=== PATIENT | female | born 1945 | race Caucasian/White ===

== ENCOUNTER 2017-10-02 12:32 | Inpatient (IN) | payer MEDICARE, OTHER ==
[~2017-10-02] VITALS: Ht 162.6 cm; Wt 83.9 kg
[~2017-10-02 12:32] MED LIST: ADULT LOW DOSE81 MG PO; AMBIEN 5 MG TABL5 M1 PO; ARTHROTEC EC 71 EAC1 PO; ASPIRIN81 M2 PO; ATORVASTATIN CA40 MG PO; CIPRO250 M1 PO; DILTIAZEM HCL60 MG PO; EZETIMIBE; FENTANYL PA25 MCG/HR TRANSDERM; FLECAINIDE ACE150 MG PO; HYDROCODON-ACE1 EAC7 PO; HYDROCODONE-AP1 EAC6 PO; HYDROCODONE-APA1 TA1 PO; HYSINGLA ER20 MG PO; HYSINGLA ER30 MG PO; ISOSORBIDE MONO30 M1 PO; LEVOTHYROXIN0.088 MG PO; LIORESAL 10 MG10 MG PO; MEDROLDOSEPACK PO; NEXIUM40 MG; PEPCID AC20 M1 PO; PROZAC20 MG PO; PROZAC40 MG; SYNTHROID125 MCG; ZESTORETIC 10-1 EACH PO; ZETIA10 MG PO; ZOCOR80 MG; ZOFRAN 4 MG ORAL4 M1 DIS
[2017-10-02 12:34] VITALS: BP 155/112
[2017-10-02] MEDS ORDERED: XARELTO20 MG PO ×2 (12:47→12:48)
[2017-10-02] MEDS ORDERED: PROPAFENONE 15150 MG PO (12:48)
[2017-10-02] MEDS ORDERED: CYMBALTA60 MG PO (12:50)
[2017-10-02 12:52] LABS: ABSOLUTE BASOPHILS 0.1 thou/uL (0.0-0.2); ABSOLUTE EOSINOPHILS 0.4 thou/uL (0.0-0.7); ABSOLUTE LYMPHOCYTES 1.9 thou/uL (0.8-5.3); ABSOLUTE MONOCYTES 0.6 thou/uL (0.0-1.2); ABSOLUTE NEUTROPHILS 4.6 thou/uL (1.6-8.1); BASOPHILS 1.3 %; EOSINOPHILS 4.8 %; HEMATOCRIT 45.6 % (37.0-47.0); HEMOGLOBIN 15.3 gm/dL (12.0-15.0); LYMPHOCYTES 24.5 %; MCH 28.6 pg (26.0-34.0); MCHC 33.7 g/dL (28.0-37.0); MONOCYTES 8.5 %; MPV 9.2 fl. (7.2-11.1); NUCLEATED RBCS 0 /100WBC; PLATELET COUNT* 261 thou/uL (150-400); POLYS 60.9 %; RBC 5.36 mil/uL (4.20-5.00); RDW-CV 13.9 % (10.5-14.5); WBC 7.6 thou/uL (4.0-11.0)
[2017-10-02 13:00] LABS: ANION GAP 10 mmol/L (7-16); BUN 14 mg/dL (7-18); CALCIUM 9.3 mg/dL (8.5-10.1); CHLORIDE 99 mmol/L (98-107); CO2 26 mmol/L (21-32); CREATININE 0.9 mg/dL (0.6-1.3); GLUCOSE 217 mg/dL (70-99); POTASSIUM 3.4 mmol/L (3.5-5.1); SODIUM 135 mmol/L (136-145)
[2017-10-02 13:06] LABS: ALBUMIN 3.1 g/dL (3.4-5.0); ALKALINE PHOSPHATASE 102 U/L (46-116); SGOT 22 U/L (15-37); SGPT 23 U/L (30-65); TOTAL BILIRUBIN 0.5 mg/dL (<0.1-1.0); TOTAL PROTEIN 7.6 g/dL (6.4-8.2); TROPONIN-I LEVEL <0.06 ng/mL (<0.06)
[2017-10-02 13:17] LABS: APTT 25.2 Seconds (25.0-31.3); INR 1.1; PROTIME 10.5 Seconds (9.20-11.50)
[2017-10-02 14:21] VITALS: BP 110/71
[2017-10-02] MEDS ORDERED: PROTONIX40 M1 PO (15:10)
[2017-10-02] MEDS ORDERED: HYDROCODON-ACE1 EAC8 PO (15:16)
[2017-10-02] MEDS ORDERED: LISINOPRIL-HCT1 EACH PO (15:18)
[2017-10-02] MEDS ORDERED: MINOCIN50 MG PO (15:19)
[2017-10-02] MEDS ORDERED: ZANTAC 150MG T150 MG PO (15:20)
[2017-10-02] MEDS ORDERED: HYSINGLA ER30 MG PO (15:22)
--- NOTE | 2017-10-02 18:56 | NUR ---
PT BACK INTO A FIB GOES JORDY BERNAL PUT IN NEW ORDERS TO HELP
[2017-10-02 20:20] VITALS: BP 103/73
[2017-10-03] VITALS (7 sets, daily range): BP systolic 101–113; BP diastolic 59–71
--- NOTE | 2017-10-03 05:00 | NUR ---
A&O X4 CALM COOPERITVE. PT REPORTED UNABLE TO SLEEP GIVEN SECOND DOSE OF AMBIEN. PT SR ON THE MONITOR. PT BECAME TACKY WHEN WALKING TO THE BATHROOM. PT ON RA. PT ON O2 SAT STUDY FOR NIGHT. PT ADLIB. VITALS WNL. HOURLY ROUNDING FOR SAFETY.
--- NOTE | 2017-10-03 08:40 | NUR ---
ASSUMED PT CARE AT 0730, FULL ASSESMENT DONE CHARTED. PT A/O X4, DENIES CHEST PAIN, PT STATES SHE TAKES HYDROCODONE DAILY PRESCRIBED BY HER PAINMANAGEMENT . PT UP TO CHAIR FOR BREAKFAST. BECAME SOA AND HR ELEVATED AT THIS TIME. O2 SAT 98%, PT ON RA. PT MAY DISCHARGE TODAY, WAITING ON CARDIOLOGY SIGN OFF. FALL PRECATUIONS IN PLACE. CALL LIGHT IN REACH. WILL CONTINUE WITH PLAN OF CARE.
--- NOTE | 2017-10-03 08:42 | TST ---
[place] [address] TREADMILL STRESS TEST Name: DOROTHY SAVAGE Room: [address] IN .R.#: [id number] Admission: 10/02/17 Attend Phys: Jesse Gracia Discharge: Date of : 49 Date of Service: 10/02/17 1754 Report #: [id number] THIS REPORT FOR: //name// CC: Clive Garcia PROCEDURE: Standard Merlin protocol exercise stress test. INDICATION: Chest pain and dyspnea. CARDIAC HISTORY: Paroxysmal atrial fibrillation. CARDIAC MEDICATIONS: Isosorbide, Zestoretic, Xarelto, propafenone, and Crestor. The patient exercised per standard Merlin protocol for a total of 4 minutes and 8 seconds. The resting heart rate was 111 beats per minute with the resting blood pressure of 110/78 mmHg. At peak stress, the patient's heart rate was 164 beats per minute with the peak stress blood pressure of 191/98 mmHg. The recovery heart rate was 99 beats per minute with a recovery blood pressure of 146/83 mmHg. Exercise was stopped due to dyspnea and fatigue. The patient had no chest discomfort with the standard Merlin protocol exercise. The patient achieved 109% of the age predicted maximum heart rate and an energy expenditure of 5.97 METS. The baseline 12-lead electrocardiogram shows sinus tachycardia with nonspecific ST segment depression noted in the anterolateral leads. EKGs obtained during and post-exercise showed sinus tachycardia without significant ST segment changes when compared to baseline. There were no stress induced arrhythmias. IMPRESSIONS: 1. Limited exercise tolerance. 2. No clinical evidence to suggest stress-induced ischemia. 3. No EKG changes to suggest stress-induced ischemia. <ELECTRONICALLY SIGNED> By: Ori Duong MD, FACC 10/03/17 0842 1754 0319 Ori Duong MD, FACC /nt
--- NOTE | 2017-10-03 08:42 | CON ---
[address] [address] CONSULTATION Name: DOROTHY SAVAGE Emmanuel Room: [address] IN [facility]#: [id number] Admission: 10/02/17 Attend Phys: John Torres Discharge: Date of : 49 Report #: [id number] THIS REPORT FOR: //name// CC: Clive Garcia DATE OF SERVICE: 10/02/2017 INDICATION: Dyspnea on exertion, chest pain. HISTORY OF PRESENT ILLNESS: The patient is a 72-year-old white female with a history of paroxysmal atrial fibrillation. She was recently placed on propafenone and Xarelto as she was discovered on a 30-day event monitor to be having an episode of atrial fibrillation. She states the propafenone has made her nauseous. She is still taking the medication. She states that over the last year, she has had progressive dyspnea on exertion and weakness and fatigue to the point where now she lays on the couch or on her bed and essentially does nothing else. She gets up to walk from the couch to the kitchen, she becomes exceptionally dyspneic and notes her heart pounding and has chest pressure that resolves with rest. She does not have the symptoms while at rest. She is without other cardiac complaints at this time. EKG in the Emergency Room shows sinus rhythm. Troponin is less than 0.6. PAST MEDICAL HISTORY: Paroxysmal atrial fibrillation, hyperlipidemia, anxiety disorder and colon resection 5 years ago. She had a cardiac catheterization in 2009 that showed nonocclusive coronary artery disease. Normal LV systolic function. Gastroesophageal reflux. HOME MEDICATIONS: Cymbalta all 60 mg p.o. daily, Nexium 40 mg p.o. daily, hydrocodone/acetaminophen 5/325 q.8h. p.r.n., Imdur 30 mg daily, levothyroxine 0.088 mg daily, Zestoretic 10/12.5 daily, propafenone 150 mg t.i.d., Xarelto 20 mg daily, Ambien 5 mg at bedtime. ALLERGIES: None documented. FAMILY HISTORY: Noncontributory. SOCIAL HISTORY: The patient is a nonsmoker. PHYSICAL EXAMINATION: VITAL SIGNS: Stable. Blood pressure 110/71, pulse 89 and regular. GENERAL: This is a pleasant female in no distress. Mood and affect appropriate. HEENT: The patient is wearing glasses. Extraocular muscles intact. Mucous membranes are moist. NECK: Shows no jugular venous distention. [place] [address] CONSULTATION Name: DOROTHY SAVAGE Room: [address]#: [id number] Admission: 10/02/17 Attend Phys: John Torres Discharge: Date of : 49 Report #: [id number] CHEST: Reveals clear lung nielson without wheezes, rales or rhonchi. CARDIOVASCULAR: Reveals a regular rhythm with normal S1 and S2. I do not appreciate gallop or murmur. ABDOMEN: Reveals normal bowel sounds. The abdomen is soft and nontender. EXTREMITIES: Shows no edema. Peripheral pulses are 2+ and easily palpable. SKIN: Warm and dry. LABORATORY DATA: A 12-lead EKG shows sinus rhythm with no significant ST or T-wave abnormality. Labs are reviewed. Electrolytes are fairly unremarkable. The initial troponin is less than 0.06. NT-proBNP is 17. CBC is within normal limits. Chest x-ray shows no acute infiltrates or edema. IMPRESSION AND RECOMMENDATIONS: 1. Profound dyspnea on exertion. Etiology is not entirely clear. This could represent an anginal equivalent. Stress testing will be ordered. Further evaluation will be pending the results of that study. I am also obtaining echocardiogram to evaluate underlying cardiac structure and function. 2. Paroxysmal atrial fibrillation. The patient is having some intolerance to propafenone. She has had significant bradycardia in the past with rate controlling medications. I would recommend switching to flecainide and consider evaluation for ablation therapy. 3. Reported history of hyperlipidemia. Fasting lipid profile pending. <ELECTRONICALLY SIGNED> By: Ori Duong MD, FACC 10/03/17 0842 1500 [id number] Duong MD, FACC /nt
[2017-10-03] MEDS ORDERED: FLECAINIDE ACET50 M1 PO (13:33)
[2017-10-03] MEDS ORDERED: SYMBICORT160 MCG/4. INH (13:34)
--- NOTE | 2017-10-03 14:44 | 2DMMODE ---
[place] [address] 2 D/M-MODE ECHOCARDIOGRAM Name: DOROTHY SAVAGE Room: [address] IN [facility]#: [id number] Admission: 10/02/17 Attend Phys: Jesse Garcia Discharge: Date of : 49 Date of Service: 10/03/17 1443 Report #: [id number] THIS REPORT FOR: //name// APPROVED REPORT Study performed: 10/03/2017 10:30:01 EXAM: Comprehensive 2D, Doppler, and color-flow Echocardiogram Patient Location: In-Patient Room #: 210 Status: routine BSA: 1.89 HR: 74 bpm BP: 106/65 mmHg Rhythm: NSR Other Information Study Quality: Good Indications Chest Pain 2D Dimensions LVEF(%): 86.83 (>50%) IVSd: 11.95 (7-11mm) LVOT Diam: 19.37 (18-24mm) LVDd: 40.34 mm PWd: 9.60 (7-11mm) Ascending Ao: 32.35 (22-36mm) LVDs: 17.77 (25-40mm) Aortic Root: 25.68 mm Berrios's LVEF: 86.83 % Volumes Left Atrial Volume (Systole) LA ESV Index: 17.80 mL/m2 Aortic Valve AoV Peak Jamil.: 1.50 m/s AO Peak Gr.: 8.97 mmHg LVOT Max P.39 mmHg AO Mean Gr.: 4.95 mmHg LVOT Mean P.46 mmHg LVOT Max V: 1.45 m/s AO V2 VTI: 23.56 cm LVOT Mean V: 0.83 m/s YANDEL (VTI): 3.04 cm2 LVOT V1 VTI: 24.28 cm Mitral Valve E/A Ratio: 0.80 [place] [address] 2 D/M-MODE ECHOCARDIOGRAM Name: JESSICADOROTHY HERNANDEZ Room: [address] IN .R.#: [id number] Admission: 10/02/17 Attend Phys: Jesse Garcia Discharge: Date of : 49 Date of Service: 10/03/17 1443 Report #: [id number] MV Decel. Time: 277.64 ms MV E Max Jamil.: 0.70 m/s MV PHT: 80.52 ms MVA (PHT): 2.73 cm2 TDI E/Lateral E': 5.83 E/Medial E': 7.78 Medial E' Jamil.: 0.09 m/s Lateral E' Jamil.: 0.12 m/s Pulmonary Valve PV Peak Jamil.: 1.16 m/s PV Peak Gr.: 5.36 mmHg Left Ventricle The left ventricle is normal size. There is normal LV segmental wall motion. There is normal left ventricular wall thickness. Left ventricular systolic function is normal. The left ventricular ejection fraction is within the normal range. LVEF is 60-65%. Grade I - abnormal relaxation pattern. Right Ventricle The right ventricle is normal size. The right ventricular systolic function is normal. Atria The left atrium size is normal. The right atrium size is normal. Aortic Valve Mild aortic valve sclerosis. No aortic regurgitation is present. There is no aortic valvular stenosis. Mitral Valve The mitral valve is normal in structure. Trace mitral regurgitation. No evidence of mitral valve stenosis. Tricuspid Valve The tricuspid valve is normal in structure. Unable to assess PA pressure. Trace tricuspid regurgitation. Pulmonic Valve The pulmonary valve is normal in structure. There is no pulmonic valvular regurgitation. Great Vessels The aortic root is normal in size. IVC [place] [address] 2 D/M-MODE ECHOCARDIOGRAM Name: DOROTHY SAVAGE Room: [address] IN ..#: [id number] Admission: 10/02/17 Attend Phys: Jesse Garcia Discharge: Date of : 49 Date of Service: 10/03/17 1443 Report #: [id number] collapses with >50% inspiration Pericardium There is no pericardial effusion. <Conclusion> The left ventricle is normal size. There is normal left ventricular wall thickness. Left ventricular systolic function is normal. The left ventricular ejection fraction is within the normal range. LVEF is 60-65%. Grade I - abnormal relaxation pattern. The right ventricle is normal size. The left atrium size is normal. Mild aortic valve sclerosis. No aortic regurgitation is present. There is no aortic valvular stenosis. The mitral valve is normal in structure. Trace mitral regurgitation. The tricuspid valve is normal in structure. IVC is normal in size and collapses with >50% inspiration There is no pericardial effusion. There is normal LV segmental wall motion. <ELECTRONICALLY SIGNED> By: Tyshawn Olson MD, FACC 10/03/17 1443 1443 1443 Tyshawn Olson MD, FACC /INF
--- NOTE | 2017-10-03 15:44 | EKG ---
[place] [address] ELECTROCARDIOGRAM REPORT Name: JESSICADAVIDLORIDOROTHY L Room: [address] IN 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 Officer: : 1945 Requested By: Beltran Mcpherson Order Number: [id number] MD: Tyshawn Olson Measurements Intervals [place] Rate: 86 P: 78 MA: 182 QRS: 20 QRSD: 125 T: 22 QT: 386 QTc: 462 Interpretive Statements Sinus rhythm Nonspecific intraventricular conduction delay Borderline ST depression, anterolateral leads Baseline wander in lead(s) V6 Compared to ECG 07/07/2012 16:01:44 Intraventricular conduction delay now present Possible ischemia no longer present ST (T wave) deviation still present Electronically Signed On 10-03-2017 15:44:12 MATERIALS HANDLING EQUIPMENT OPERATOR by Tyshawn Olson [email or web address] <ELECTRONICALLY SIGNED> By: Tyshawn Olson MD, FACC 10/03/17 1544 1239 1239 Tyshawn Olson MD, FAC /EPI
--- NOTE | 2017-10-03 15:46 | EKG ---
[place] [address] ELECTROCARDIOGRAM REPORT Name: JESSICADAVIDLORIDOROTHY L Room: [address] IN [facility]#: [id number] Admission: 10/02/17 Attend Phys: John Torres Discharge: Date of : 49 Report #: [id number] THIS REPORT FOR: //name// [facility] Test Date: 2017-10-02 Test Time: 18:27:55 Pat Name: DOROTHY SAVAGE Department: Room: [facility] Gender: F Bindery Worker: : 1945 Requested By: Beltran Mcpherson Order Number: [id number] Reading MD: Tyshawn Olson Measurements Intervals [place] Rate: 119 P: LA: QRS: 12 QRSD: 86 T: QT: 347 QTc: 489 Interpretive Statements Atrial fibrillation with rapid response Borderline repolarization abnormality Borderline prolonged QT interval Compared to ECG 07/07/2012 16:01:44 Sinus rhythm no longer present ST (T wave) deviation no longer present Electronically Signed On 10-03-2017 15:46:17 FITNESS PLAN COORDINATOR by Tyshawn Olson [email or web address] <ELECTRONICALLY SIGNED> By: Tyshawn Olson MD, [facility] 10/03/17 1546 1827 182 Tyshawn Olson MD, [facility] /EPI
--- NOTE | 2017-10-03 15:47 | EKG ---
[place] [address] ELECTROCARDIOGRAM REPORT Name: LEONILAEMILEEDOROTHY L Room: [address] IN [facility]#: [id number] Admission: 10/02/17 Attend Phys: John Torres Discharge: Date of : 49 Report #: [id number] THIS REPORT FOR: //name// [facility] Test Date: 2017-10-03 Test Time: 00:39:30 Pat Name: DOROTHY SAVAGE Department: Room: [facility] Gender: F Electrical Repairer: : 1945 Requested By: Beltran Mcpherson Order Number: [id number] Jose Daniel MD: Tyshawn Olson Measurements Intervals [place] Rate: 81 P: 47 OR: 204 QRS: 19 QRSD: 117 T: 12 QT: 430 QTc: 500 Interpretive Statements Sinus rhythm Nonspecific intraventricular conduction delay Low voltage, precordial leads Compared to ECG 07/07/2012 16:01:44 Intraventricular conduction delay now present Low QRS voltage now present ST (T wave) deviation no longer present Possible ischemia no longer present Electronically Signed On 10-03-2017 15:47:14 INSTRUCTOR MODELING by Tyshawn Olsno [email or web address] <ELECTRONICALLY SIGNED> By: Tyshawn Olson MD, [facility] 10/03/17 1547 0039 0039 Tyshawn Olson MD, [facility] /EPI
[2017-10-03] MEDS ORDERED: XARELTO20 MG PO (17:03)
--- NOTE | 2017-10-03 17:51 | NUR ---
RECIEVED DISCHARGE ORDERS FROM DR LOPEZ, REVIEWED MEDS WITH HIM, NEW MEDS CALLED TO PHARMACY. REVIEWED THESE ORDERS WITH PT AND . THEY BOTH VERBALIZED UNDERSTANDING. PTS IV REMOVED, BELONGINGS GATHERED. PT LEFT UNIT AT APPROX 1745
--- NOTE | 2017-10-04 12:31 | NUR ---
PATIENTS NOTIFIED THIS RN ABOUT THEIR INSURANCE NOT COVERING THE NEW SCRIPT FOR SYMBICORT. STATED HE NEEDED A REPLACEMENT MEDICATION. NEW SCRIPT FOR ADVAIR HFA INHALER CALLED INTO PATIENTS PHARMACY.
[2017-11-19] MEDS ORDERED: HYSINGLA ER30 MG PO ×2 (09:30→09:32)
[2017-11-19] MEDS ORDERED: HYDROCODONE-AP1 EAC6 PO (09:30)
[2017-11-19] MEDS ORDERED: AMBIEN 5 MG TABL5 M1 PO (09:37)
[2017-11-19] MEDS ORDERED: ZESTORETIC 10-1 EACH PO (09:37)
[2017-11-19] MEDS ORDERED: CRESTOR20 MG PO (09:44)
[2017-11-19] MEDS ORDERED: XARELTO20 MG PO (09:44)
[2017-11-19] MEDS ORDERED: ZANTAC 150MG T150 MG PO (09:44)
[2018-03-18] MEDS ORDERED: HYDROCODONE-AP1 EAC6 PO ×2 (08:39→09:53)
[2018-03-18] MEDS ORDERED: HYSINGLA ER30 MG PO ×2 (08:39→09:53)
[2018-03-18] MEDS ORDERED: HYSINGLA ER40 MG PO (10:04)
== END 2017-10-03 17:45 | disposition home or self-care (01) | DRG 202 ==
LOC: M.ERS 12:32 → M.2W 13:17 → M.TBA-ER 13:17 → M.2W 14:42 → M.TBA-ER 10-03 08:25 → M.2W 10-03 17:45
PROVIDERS: Family Medicine; ADMIT Internal Medicine
DX: J20.9 Acute bronchitis, unspecified (principal); J44.0 Chronic obstructive pulmonary disease with (acute) lower respiratory infection; J96.10 Chronic respiratory failure, unspecified whether with hypoxia or hypercapnia; I48.0 Paroxysmal atrial fibrillation; E78.5 Hyperlipidemia, unspecified; F41.9 Anxiety disorder, unspecified; I25.10 Atherosclerotic heart disease of native coronary artery without angina pectoris; K21.9 Gastro-esophageal reflux disease without esophagitis; J11.1 Influenza due to unidentified influenza virus with other respiratory manifestations; I10 Essential (primary) hypertension; Z90.49 Acquired absence of other specified parts of digestive tract

== ENCOUNTER → 2017-11-19 | Outpatient (CLI) | payer MEDICARE, OTHER ==
[~2017-11-19] MED LIST changes: +CRESTOR20 MG PO; +CYMBALTA60 MG PO; +FLECAINIDE ACET50 M1 PO; +HYDROCODON-ACE1 EAC8 PO; +HYSINGLA ER40 MG PO; +LISINOPRIL-HCT1 EACH PO; +MINOCIN50 MG PO; +NEXIUM40 MG PO; +PROPAFENONE 15150 MG PO; +PROTONIX40 M1 PO; +PROTONIX40 M3 PO; +SYMBICORT160 MCG/4. INH; +SYNTHROID88 MCG PO; +XARELTO20 MG PO; +ZANTAC 150MG T150 MG PO
--- NOTE | 2017-12-04 14:40 | PAINCON ---
[address] [address] PAIN MANAGEMENT CONSULTATION Name: DOROTHY SAVAGE [id number] Admission: 11/19/17 Attend Phys: Dion Long MD Discharge: Date of : 49 Report #: [id number] THIS REPORT FOR: //name// CC: Dion Jerry MD DATE OF SERVICE: 11/19/2017 FOLLOWUP COMPLAINT: Here for medication because of mid and low back pain. FOLLOWUP HISTORY: The patient is a 72-year-old female who has been seen and followed in the pain clinic for chronic back pain. She has been seen by Dr. Destin Cooper. This is my first visit with her. She states that she is having pain and discomfort in the mid portion of her back that it is a 4/10 today. She has had this problem which has been chronic for a number of years. Notes that Ben Bolt is helpful. Some days, she finds that she needs to take 2 tablets. She does this when she is having increased pain. Overall, she feels that things are going reasonably well. Her medications are working satisfactorily. She is not having any problems with them. No bowel or bladder dysfunction. No problems with mentating. Overall, this enable her to engage in activities of daily living, she would not be able to do without them. There is no disorientation. She states that she keeps her medications in a confined area. She is aware of the possible complications of these medications. She finds that Hysingla 30 mg a day as well as with the frequent use of hydrocodone 5 mg tablets can be quite efficacious. She does not feel that she is having any withdrawal signs. She is not having any feeling of addiction nor problems with decreasing efficacy. ALLERGIES: No known drug allergies. CURRENT MEDICATIONS: Cymbalta 60 mg p.o. daily, hydrocodone 5/325 one p.o. t.i.d. as needed, Hysingla ER (hydrocodone 30 mg 1 p.o. daily), Synthroid 0.088 mg, lisinopril/hydrochlorothiazide 10/12.5, Zantac 150 mg a total of 300 mg daily, Xarelto 20 mg daily, Crestor 20 mg daily, Ambien 5 mg daily. PAST MEDICAL HISTORY: Degenerative joint disease, osteoarthritis, gastroesophageal reflux, dyslipidemia, depression, hypothyroidism. PAST SURGICAL HISTORY: Colon resection in 2004. SOCIAL HISTORY: Denies use of tobacco, alcohol or IV drug use. 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 She is accompanied by her . REVIEW OF SYSTEMS: Positive for recurrent low back pain, neck pain, and difficulty ambulating [place] [address] PAIN MANAGEMENT CONSULTATION Name: DOROTHY SAVAGE Room: [facility] JAMILA Jenny#: [id number] Admission: 11/19/17 Attend Phys: Dion Long MD Discharge: Date of : 49 Report #: [id number] Pain clinic assessment score, the patient states that she is not being treated out right for osteoarthritis or rheumatoid arthritis. Height 5 feet 5 inches, weight 194 pounds, BMI is 32.2. VITAL SIGNS: Blood pressure 111/81, heart rate 74, respiratory rate 16, room air saturation 96%, temperature 98.1. Pain intensity score 4/10, mild. Pain improves when she lies down and sometimes placement of a pillow under her legs. IMPRESSION: 1. Risk for falling. The patient has not fallen in the last 3 months. 2. Blood thinner. The patient has been given Xarelto for atrial fibrillation, recently hospitalized in the last few weeks because of this. 3. Opioid therapy greater than 6 weeks. The patient is on a contract with the pain clinic regarding use of Hysingla and fentanyl. RISK ASSESSMENT TOOL: 1. Functional assessment tool. 2. Recreational drug use: Denies recreational drug use. 2. Tobacco: Smoked 30 years ago, has stopped. 3. Alcohol: The patient rarely uses alcoholic beverages. PHYSICAL EXMINATION: GENERAL: The patient is a well-developed, well-nourished white female. Appears her stated age. She is accompanied by her . ORIENTATION: The patient is alert and oriented x 3. Affect is appropriate. HEENT: Normocephalic, atraumatic. Extraocular eye muscles intact. Hearing is within normal limits. Buccal membranes are moist. NECK: Without adenopathy or JVD. LUNGS: Clear to auscultation. HEART: Regular rate. ABDOMEN: Nontender. MUSCULOSKELETAL: Normal alignment without significant scoliosis, kyphosis or lordosis. EXTREMITIES: No clubbing, cyanosis or edema. She has some tenderness to palpation in the mid back in the low back area, paraspinous area musculature. Spurling's test is negative. Muscle bulk and tone equal and symmetrical in the upper extremities, intact to light touch from C5 through dermatomal T1. Deep tendon reflexes equal, symmetrical, brachioradialis and triceps. IMPRESSION: 1. Lumbosacral spondylosis without radiculopathy. 2. Myofascial pain. 3. Opioid dependency. 4. Chronic intractable pain. [address] [place] [address] PAIN MANAGEMENT CONSULTATION Name: DOROTHY SAVAGE Room: [facility]#: [id number] Admission: 11/19/17 Attend Phys: Dion Long MD Discharge: Date of : 49 Report #: [id number] RECOMMENDATIONS: We discussed treatment options with the patient and her . We will continue with her current medications. She has newly diagnosed episode of atrial fibrillation. She is now currently been placed on Xarelto. She will call us if she has any problems with her medications. She will continue with the Hysingla 30 mg daily and hydrocodone 5 mg p.r.n. as needed. Hopefully, she will be able to continue with her activities of daily living with a reasonable amount of comfort. She will call us if she has any problems with the medication. A script for Hysingla 30 mg 1 tab p.o. every day. Total of 90 has been written in a 3-month prescription. Also, a prescription for hydrocodone 5/325 one every 8 hours p.r.n. for pain, has been written for with 2 total of 270 for a 3-month prescription. The patient will follow up in the next 3 months as needed. We would like to thank you for letting us participate in her care. We hope she continues to improve. Report amended for demographic error. <ELECTRONICALLY SIGNED> By: Dion Long MD 12/04/17 1440 1042 1323N. MD MERNA Mckenzie
== END ==
LOC: M.PC 11-18 09:00
DX: M47.27 Other spondylosis with radiculopathy, lumbosacral region (principal); G89.4 Chronic pain syndrome; F11.20 Opioid dependence, uncomplicated

== ENCOUNTER 2018-01-16 17:36 | Inpatient (IN) | payer MEDICARE, OTHER ==
[~2018-01-16] VITALS: Ht 152.4 cm; Wt 86.6 kg
[~2018-01-16 17:36] MED LIST changes: -HYSINGLA ER40 MG PO; -NEXIUM40 MG PO; -PROTONIX40 M3 PO; -SYNTHROID88 MCG PO
[2018-01-16 17:42] VITALS: BP 129/83
[2018-01-16] MEDS ORDERED: NEXIUM40 MG PO (17:51)
[2018-01-16] MEDS ORDERED: FLECAINIDE ACET50 M1 PO (17:51)
[2018-01-16] MEDS ORDERED: HYSINGLA ER30 MG PO (17:51)
[2018-01-16 18:13] LABS: ABSOLUTE BASOPHILS 0.1 thou/uL (0.0-0.2); ABSOLUTE EOSINOPHILS 0.3 thou/uL (0.0-0.7); ABSOLUTE LYMPHOCYTES 2.5 thou/uL (0.8-5.3); ABSOLUTE MONOCYTES 0.5 thou/uL (0.0-1.2); ABSOLUTE NEUTROPHILS 4.3 thou/uL (1.6-8.1); BASOPHILS 1.1 %; EOSINOPHILS 3.4 %; HEMATOCRIT 43.3 % (37.0-47.0); HEMOGLOBIN 14.5 gm/dL (12.0-15.0); LYMPHOCYTES 32.9 %; MCH 28.8 pg (26.0-34.0); MCHC 33.5 g/dL (28.0-37.0); MONOCYTES 7.1 %; MPV 9.4 fl. (7.2-11.1); NUCLEATED RBCS 0 /100WBC; PLATELET COUNT* 253 thou/uL (150-400); POLYS 55.5 %; RBC 5.04 mil/uL (4.20-5.00); RDW-CV 14.5 % (10.5-14.5); WBC 7.7 thou/uL (4.0-11.0)
[2018-01-16 18:18] LABS: ANION GAP 9 mmol/L (7-16); BUN 18 mg/dL (7-18); CALCIUM 9.1 mg/dL (8.5-10.1); CHLORIDE 103 mmol/L (98-107); CO2 29 mmol/L (21-32); CREATININE 0.9 mg/dL (0.6-1.3); GLUCOSE 164 mg/dL (70-99); POTASSIUM 3.6 mmol/L (3.5-5.1); SODIUM 141 mmol/L (136-145)
[2018-01-16 18:28] LABS: ALBUMIN 3.1 g/dL (3.4-5.0); ALKALINE PHOSPHATASE 90 U/L (46-116); LIPASE 91 U/L (73-393); NT-PRO BRAIN NAT PEPTIDE 68 pg/mL (<300); SGOT 17 U/L (15-37); SGPT 19 U/L (30-65); TOTAL BILIRUBIN 0.3 mg/dL (<0.1-1.0); TOTAL PROTEIN 7.2 g/dL (6.4-8.2); TROPONIN-I LEVEL <0.06 ng/mL (<0.06)
[2018-01-16 19:36] VITALS: BP 119/69
[2018-01-16 20:00] VITALS: BP 124/82
--- NOTE | 2018-01-16 23:04 | NUR ---
PT WAS ADMITTED THIS EVENING FROM ER . GOT ON THE TELE FLOOR IN ROOM 211 AT 1945 ACCOMPANIED BY NURSE GLENIS. SHE IS AMBULATORY , STEADY, AND PLEASANT , ALERT AWAKE ORIENTED X 4, COOPERATIVE. O2 SATURATION IS 100%ON RA. VITAL SIGNS WITHIN NORMAL LIMIT. SKIN IS INTACT. SINUS RYTHM ON THE MONITOR. CARDIAC SCRIPT WAS PRINTED AND PLACED IN THE ADMISSION HISTORY AND ASSESSMENT PERFOREMD AT BEDSIDE. REFER TO CHART. PT ONLY CONCERN IS TO GO HOME IN THE MORNING. CARDIOLOGY CONSULTED ORDERED. DR WILLIS SAYS HE WILL SEE PT IN THE MORNING. PT IS PLACED NPO AFTER MIDNIGHT PER PROTOCOL. WATER AND SNCAK PROVIDED. I WENT OVER MEDICATION LIST WITH PT, DR ENCISO WAS CALLED AND ENTERED MEDS ON THE COMPUTER . PM MEDICATIONS WERE ADMINITERED SCHEDULED. PT MADE COMFORTABLE, CALL LIGHT AT REACH, EDUATION PROVIDED NEEDED. ORDERS WERE PUT ON THE COMPUTER. PT STATES SHE LIVES HOME WITH WHO VISITED FOR 1 HOUR. PT IS CURRENTLY READING IN HER ROOM. WILL CONTINUE TO MONITOR.
[2018-01-17] VITALS (7 sets, daily range): BP systolic 91–120; BP diastolic 52–72
--- NOTE | 2018-01-17 10:31 | NUR ---
Pt is A&O. Resides at home with her . Independent with ADLS, continues to cook, clean and drive. No DME. No hx of HH or SNF. Hx of outpt therapy. Supportive family that is invovled in POC. Goal is to return home once medically stable. No needs anticipated.
--- NOTE | 2018-01-17 10:57 | EKG ---
[place] [address] ELECTROCARDIOGRAM REPORT Name: DOROTHY SAVAGE Room: [address] IN [facility]#: [id number] Admission: 01/16/18 Attend Phys: John Torres Discharge: Date of : 49 Report #: [id number] THIS REPORT FOR: //name// 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: : 1945 Requested By: Jeff Beck Order Number: [id number] MD: Tung Brantley Measurements Intervals [place] Rate: 119 P: MT: QRS: 21 QRSD: 109 T: -46 QT: 318 QTc: 448 Interpretive Statements Atrial flutter Low voltage, precordial leads Nonspecific T abnormalities, inferior leads Compared to ECG 10/03/2017 00:39:30 Sinus rhythm no longer present Electronically Signed On 01-17-2018 10:56:58 CDT by Tung Brantley [email or web address] <ELECTRONICALLY SIGNED> By: Tung Brantley MD, [facility] 01/17/18 1056 1741 1741 Tung Brantley MD, [facility] /EPI
--- NOTE | 2018-01-17 15:47 | CON ---
[address] [address] CONSULTATION Name: ABUNDIO SAVAGEA Emmanuel Room: [address] IN .R.#: [id number] Admission: 01/16/18 Attend Phys: John Torres Discharge: Date of : 49 Report #: [id number] THIS REPORT FOR: //name// CC: Clive Garcia DATE OF SERVICE: 01/17/2018 HISTORY OF PRESENT ILLNESS: The patient is a 72-year-old white female who I was asked to see in the hospital today after she was noted to be in atrial fibrillation. The patient initially presented back in 2005 with atrial fibrillation. She was seen by Dr. Mateusz High at that time in the Cardiology Clinic here at [place]. She initially had atrial fibrillation following a colon resection for diverticulitis. She converted to sinus rhythm. She was placed on diltiazem. She then saw Dr. Duong in 2009 after she complained of chest pain and had another episode of atrial fibrillation. She was not taking Cardizem at that time. She converted to sinus rhythm. Because of chest pain, Dr. Duong actually performed cardiac catheterization after she had an abnormal stress test and catheterization showed a normal ejection fraction of 65% with no significant coronary artery disease with only 50% stenosis of the distal circumflex artery. The patient has a long history of back pain, is on narcotics and fentanyl patches. She was actually admitted here to [facility] in September with chest pain. Because of recurrent atrial fibrillation discovered on an event recorder, Dr. Duong had placed her on propafenone. The patient states she saw Dr. Duong in November when she was doing well. However, for the past couple of days, the patient has had recurrent palpitations. She finally came to the Emergency Room last night. She had been more short of breath. In the Emergency Room last night, she appeared to be in an atrial flutter. She then converted to sinus rhythm. I was asked to see her for further evaluation and treatment. She denies any significant chest pain, increased shortness of breath, fever, edema, medical noncompliance. PAST MEDICAL HISTORY: Otherwise significant for hemicolectomy for diverticular disease, nasal septal repair, tonsillectomy. She has a history of hypertension. She has a history of hyperlipidemia. No history of diabetes. She has chronic back pain. CURRENT MEDICATIONS: Consists of Cymbalta, flecainide, hydrocodone, Synthroid, Prinzide, ranitidine, Xarelto, Crestor. ALLERGIES: She has no known drug allergies. FAMILY HISTORY: She is adopted. SOCIAL HISTORY: She is . She [place] [address] CONSULTATION Name: DOROTHY SAVAGE Room: [address]#: [id number] Admission: 01/16/18 Attend Phys: John Torres Discharge: Date of : 49 Report #: [id number] Both are retired. No smoking or alcohol abuse. REVIEW OF SYSTEMS: She has had no history of stroke, asthma, peptic ulcer disease, liver disease, kidney disease, cancer, psychiatric illness. She does wear glasses. PHYSICAL EXAMINATION: GENERAL: Revealed an elderly female lying in bed. She appeared in no distress. VITAL SIGNS: She had a blood pressure of 100/60, pulse was 60. She is afebrile. HEENT: She was anicteric, conjunctiva pink. Mucous membranes moist. NECK: Veins nondistended. No carotid bruits. Neck is supple. CHEST: Clear to auscultation. CARDIOVASCULAR: Regular rate and rhythm. ABDOMEN: Soft, nontender. EXTREMITIES: Had no edema. SKIN: Warm, dry. NEUROLOGIC: Nonfocal. LYMPH: No adenopathy. MUSCULOSKELETAL: No joint effusion. Her ECG on admission appeared to show atrial flutter with a 2:1 ventricular response rate. She currently appears to be in a sinus bradycardia. LABORATORY WORK: Sodium 141, creatinine 0.9. Liver function studies were normal. White blood cell count 7.7, hemoglobin 14.5. Her chest x-ray on admission showed normal heart size, clear lung nielson. IMPRESSION AND RECOMMENDATIONS: 1. Paroxysmal atrial arrhythmias. At this time, I would recommend increasing flecainide to 100 mg every 12 hours. I would consider referral to an EP doctor for possible ablation. The patient has been chronically anticoagulated. 2. Hypertension. The patient is on KEKE inhibitor and diuretic. 3. Hyperlipidemia. The patient is on a statin drug. 4. Chronic back pain. The patient goes to the pain clinic. <ELECTRONICALLY SIGNED> By: Tung Brantley MD, FACC 01/17/18 1547 0918 [id number] Brantley MD, FACC /nt
--- NOTE | 2018-01-17 18:22 | NUR ---
ASSESSMENT COMPLETED REFER TO COMPUTER CHARTING. NEWS TECHNICAL DIRECTOR TRACKING SR TO SB. PATIENT RESTING IN BED REPORTING NO PAIN, NAUSEA OR SHORTNESS OF BREATH AT THIS TIME. BED IN LOW AND LOCKED POSITION. CALL LIGHT WITHIN REACH. IV SALINE LOCKED. ON ROOM AIR. WILL CONTINUE TO MONITOR THIS SHIFT.
[2018-01-18 03:49] VITALS: BP 123/66
--- NOTE | 2018-01-18 04:44 | NUR ---
Pt medicated for c/o chronic back pain at bedtime. Also given ambien for sleep per pt request. VSS. SB per monitor. Reports she is hopeful of being discharged tomorrow. IV to penelope Burr. Pt requested that no new IV be placed unless absolutely necessary. Will continue to monitor.
[2018-01-18 05:36] LABS: CHOLESTEROL 173 mg/dL (<200); HDL CHOLESTEROL 57 mg/dL (>40); LDL CHOLESTEROL 89 mg/dL (<100); SERUM ASSESSMENT CLEAR; TRIGLYCERIDE 136 mg/dL (<150); VLDL 27 mg/dL (<40)
[2018-01-18 08:05] VITALS: BP 111/72
--- NOTE | 2018-01-18 08:16 | NUR ---
ASSUMED PT CARE AT 0730, FULL ASSESMENT DONE CHARTED. PT A/O X4, DENIES PAIN, VSS, SB-SR ON THE MONITOR. PT HOPING TO GO HOME TODAY. PT USING CALL LIGHT APPROPRIALTY. WILL CONTINUE WITH PLAN OF CARE.
--- NOTE | 2018-01-18 10:16 | EKG ---
[place] [address] ELECTROCARDIOGRAM REPORT Name: DOROTHY SAVAGE Room: [address] ADM IN [facility].#: [id number] Admission: 01/16/18 Attend Phys: John Torres Discharge: Date of : 49 Report #: [id number] THIS REPORT FOR: //name// [facility] Test Date: 2018-01-18 Test Time: 08:29:26 Pat Name: DOROTHY SAVAGE Department: Room: [address] Gender: F Assistant Spa Director: MONET : 1945 Requested By: Tung Brantley Order Number: [id number] Reading MD: Daiwt Kebede Measurements Intervals [place] Rate: 59 P: 45 WV: 191 QRS: 14 QRSD: 105 T: 25 QT: 472 QTc: 468 Interpretive Statements Sinus rhythm Low voltage, precordial leads Compared to ECG 01/16/2018 17:41:48 Atrial flutter no longer present T-wave abnormality no longer present Electronically Signed On 01-18-2018 10:16:34 CDT by Dawit Kebede [email or web address] <ELECTRONICALLY SIGNED> By: Tuyet Kebede MD, [facility] 01/18/18 1016 0829 0829 Tuyet Kebede MD, [facility] /EPI
[2018-01-18] MEDS ORDERED: SYNTHROID88 MCG PO (11:36)
[2018-01-18 11:48] VITALS: BP 111/72
[2018-03-18] MEDS ORDERED: HYSINGLA ER30 MG PO ×2 (08:39→09:53)
[2018-03-18] MEDS ORDERED: HYDROCODONE-AP1 EAC6 PO ×2 (08:39→09:53)
[2018-03-18] MEDS ORDERED: HYSINGLA ER40 MG PO (10:04)
== END 2018-01-18 12:45 | disposition home or self-care (01) | DRG 308 ==
LOC: M.ERS 17:36 → M.2W 18:32 → M.TBA-ER 18:32 → M.2W 19:47
PROVIDERS: Emergency Medicine; Internal Medicine Cardiovascular Disease; ADMIT Internal Medicine
DX: I48.0 Paroxysmal atrial fibrillation (principal); I50.33 Acute on chronic diastolic (congestive) heart failure; E78.5 Hyperlipidemia, unspecified; E66.01 Morbid (severe) obesity due to excess calories; I11.0 Hypertensive heart disease with heart failure; G89.29 Other chronic pain; M54.9 Dorsalgia, unspecified; E03.9 Hypothyroidism, unspecified; J44.9 Chronic obstructive pulmonary disease, unspecified; F41.9 Anxiety disorder, unspecified; Z79.899 Other long term (current) drug therapy; Z68.37 Body mass index [BMI] 37.0-37.9, adult

== ENCOUNTER 2018-03-06 21:11 | Emergency (ER) | payer MEDICARE, OTHER ==
[~2018-03-06] VITALS: Ht 162.6 cm; Wt 88.5 kg
[~2018-03-06 21:11] MED LIST changes: +NEXIUM40 MG PO; +SYNTHROID88 MCG PO
[2018-03-06] MEDS ORDERED: PROTONIX40 M3 PO (21:21)
[2018-03-06 21:40] VITALS: BP 140/74
[2018-03-18] MEDS ORDERED: HYDROCODONE-AP1 EAC6 PO ×2 (08:39→09:53)
[2018-03-18] MEDS ORDERED: HYSINGLA ER30 MG PO ×2 (08:39→09:53)
[2018-03-18] MEDS ORDERED: HYSINGLA ER40 MG PO (10:04)
== END 2018-03-06 21:40 | disposition home or self-care (01) ==
LOC: M.ERS 21:11
DX: H11.31 Conjunctival hemorrhage, right eye (principal); F41.9 Anxiety disorder, unspecified; I48.91 Unspecified atrial fibrillation; E78.5 Hyperlipidemia, unspecified

== ENCOUNTER → 2018-03-18 | Outpatient (CLI) | payer MEDICARE, OTHER ==
[~2018-03-18] MED LIST changes: +HYSINGLA ER40 MG PO; +PROTONIX40 M3 PO
--- NOTE | 2018-04-16 14:16 | PAINCON ---
[address] [address] PAIN MANAGEMENT CONSULTATION Name: DOROTHY SAVAGE Room: [facility] Jenny#: [id number] Admission: 03/18/18 Attend Phys: Dion Long MD Discharge: Date of : 49 Report #: [id number] THIS REPORT FOR: //name// CC: Dion Jerry MD DATE OF SERVICE: 03/18/2018 FOLLOWUP COMPLAINT: Here for medication renewal. FOLLOWUP HISTORY: The patient is a 72-year-old female who has been followed in the pain clinic because of chronic back pain. She has been having pain and discomfort for a number of years. She rates it as 5/10. States that her (bones hurt all over). She finds that the Hysingla (hydrocodone) medication is working reasonably well. She is happy with the results. She does find that this medication tends to wear down. She notes that in the evenings, her pain starts to become more problematic. She is wondering whether or not an increase in the Hysingla medication would be helpful or to add another hydrocodone tablet. Overall, she feels that things are going reasonably well. She finds that Cymbalta continues to be helpful as well. Overall, she feels that things are about 90% improved with use of her current medication. Denies any bowel or bladder dysfunction. Denies any problems with her mentation. She feels that her sensorium is clear. She is aware of the problems with opioid medications. She has seen this in the media. She is aware that the use of opioid medications can lead to addiction as well as less effectiveness because of the development of tolerance. ALLERGIES: No known drug allergies. MEDICATIONS: Cymbalta 60 mg p.o. daily, hydrocodone 5/325 one p.o. t.i.d., Hysingla 30 mg daily, Synthroid 0.88 mg, lisinopril/hydrochlorothiazide 10/12.5, Zantac 150 mg total of 300 daily, Xarelto 20 mg daily, Crestor 20 mg daily, and Ambien 5 mg. PAIN CLINIC ASSESSMENT: 1. The patient does have some spondylosis in the low back area. 2. Height 5 feet 5 inches, weight 190 pounds, BMI is 32. 3. Vital signs: Blood pressure 113/76, heart rate 84, respiratory rate 16, room air saturation 96%, temperature 98.4. 4. Pain intensity is 5/10. 5. Fall risk. The patient denies falling in the last 3 months. 6. The patient on blood thinner. The patient is on Xarelto. 7. History of hypertension. The patient has not been treated for hypertension. 8. Opioids greater than 6 weeks. The patient has received her medications from 1 service[place] [address] PAIN MANAGEMENT CONSULTATION Name: DOROTHY SAVAGE Room: [facility]#: [id number] Admission: 03/18/18 Attend Phys: Dion Long MD Discharge: Date of : 49 Report #: [id number] 9. Risk assessment tool. 10. Functional assessment tool. 11. Recreational drug use. The patient denies use of recreational drugs. 12. Tobacco: The patient denies use of tobacco. 13. Alcohol: The patient denies use of alcoholic beverages. PHYSICAL EXAMINATION: GENERAL: The patient is a well-developed white female. She appears her stated age. She is alert and oriented x 3. is in accompaniment. Orientation: The patient is alert and oriented x 3. Affect is appropriate. HEENT: Normocephalic, atraumatic. Extraocular, eye muscles intact. Hearing is within normal limits. Mucous membranes are moist. NECK: Without adenopathy or JVD. LUNGS: Clear to auscultation. HEART: Regular rate. S1, S2. ABDOMEN: Nontender. MUSCULOSKELETAL: Without significant scoliosis, kyphosis, or lordosis. EXTREMITIES: No clubbing, cyanosis, or edema. The patient has some tenderness to palpation in the lower portion of her back. Has some paraspinous muscle discomfort. Spurling's test negative. Muscle bulk equal and symmetrical in the upper extremities, intact to light touch through C5 through T1 dermatomal area. Reflexes are symmetric. ASSESSMENT: 1. Lumbosacral spondylosis without radiculopathy. 2. Myofascial pain. 3. Opioid dependence. 4. Chronic intractable pain. RECOMMENDATIONS: We discussed treatment options with the patient. The patient feels that her medications are quite helpful. She rates her pain as about 90% improved with use of this medication. Feels that the Hysingla is helpful, but feels that her medications by the end of the day start to wean to wane. She is wondering whether or not she can increase either the Hysingla or the hydrocodone. We will increase the Hysingla from 30 to 40 mg. Hopefully, this will give her more pain relief. We have discussed the possible complications with opioid medications again. The possibility of tolerance as the patients have medication for longer periods of time. She will be given a script for a 3 month supply. She will follow up in the future as needed. We would like to thank you for letting us participate in her care. We hope she continues to improve. <ELECTRONICALLY SIGNED> By: Dion Long MD 04/16/18 1416 1044 1957N. Adriel Long MD /PMT
== END ==
LOC: M.PC 02-06 09:20
DX: M47.817 Spondylosis without myelopathy or radiculopathy, lumbosacral region (principal); G89.4 Chronic pain syndrome; M79.1 Myalgia; F11.20 Opioid dependence, uncomplicated